=== PATIENT | male | born 1970 | race Caucasian/White ===

== ENCOUNTER 2017-03-10 16:34 | Emergency (ER) | payer BC ==
[~2017-03-10] VITALS: Ht 170.2 cm; Wt 103.8 kg
[~2017-03-10 16:34] MED LIST: AMBIEN10 MG PO; MELOXICAM15 MG PO
[2017-03-10 16:42] VITALS: BP 163/107
[2017-03-10] MEDS ORDERED: MOTRIN800 MG PO (18:17)
[2017-03-10] MEDS ORDERED: NORCO 10/3251 TABLET PO (18:17)
== END 2017-03-10 18:50 | disposition home or self-care (01) ==
LOC: EME 16:34
DX: S46.211A Strain of muscle, fascia and tendon of other parts of biceps, right arm, initial encounter (principal); X50.0XXA Overexertion from strenuous movement or load, initial encounter; Y92.009 Unspecified place in unspecified non-institutional (private) residence as the place of occurrence of the external cause
CPT/HCPCS: 99281; 99283; J3010

== ENCOUNTER → 2017-03-15 | Outpatient (CLI) | payer BC ==
[~2017-03-15] MED LIST changes: +MOTRIN800 MG PO; +NORCO 10/3251 TABLET PO
== END | disposition home or self-care (01) ==
LOC: CDC 09:19
DX: M25.521 Pain in right elbow (principal); S46.221D Laceration of muscle, fascia and tendon of other parts of biceps, right arm, subsequent encounter; R00.1 Bradycardia, unspecified
CPT/HCPCS: 93000